=== PATIENT | female | born 1955 | race Hispanic/Latino ===

== ENCOUNTER 2019-07-21 08:51 | Outpatient (CLI) | payer OTHER ==
[2019-07-21] MEDS ORDERED: ALBUTEROL 2.5 MG/3 ML NEBU IH ONE (09:42)
== END 2019-07-21 08:52 | disposition home or self-care (01) ==
LOC: PF 08:51
PROVIDERS: ATTEND Internal Medicine
DX: J44.9 Chronic obstructive pulmonary disease, unspecified (principal)
CPT/HCPCS: 94060; 94640